=== PATIENT | male | born 1965 | race Caucasian/White ===

== ENCOUNTER → 2017-04-16 | Outpatient (CLI) | payer BC ==
[~2017-04-16] MED LIST: METOPROLOL50 MG PO; PRILOSEC20 MG PO
[2017-04-16 12:53] LABS: ALBUMIN 3.5 gm/dl (3.1-4.5); BILIRUBIN, TOTAL 0.5 mg/dl (0.2-1.0); POTASSIUM 5.4 mmol/L (3.5-5.1); TOTAL PROTEIN 7.8 gm/dL (6.4-8.2)
== END | disposition home or self-care (01) ==
LOC: LAB 12:03
PROVIDERS: Physician Assistant
DX: E78.2 Mixed hyperlipidemia (principal); E11.65 Type 2 diabetes mellitus with hyperglycemia

== ENCOUNTER → 2017-07-25 | Outpatient (CLI) | payer BC ==
[2017-07-25 11:25] LABS: ALBUMIN 3.6 gm/dl (3.1-4.5); CREATININE 1.92 mg/dL (0.70-1.30); POTASSIUM 4.3 mmol/L (3.5-5.1)
[2017-07-28 15:06] LABS: TESTOSTERONE FREE, (DIRECT) 12.2 pg/mL (7.2-24.0)
== END | disposition home or self-care (01) ==
LOC: LAB 10:23
PROVIDERS: Physician Assistant
DX: E11.65 Type 2 diabetes mellitus with hyperglycemia (principal); E78.2 Mixed hyperlipidemia; R53.83 Other fatigue

== ENCOUNTER → 2017-09-02 | Outpatient (CLI) | payer BC | END | disposition home or self-care (01) | LOC: US 11:00 | DX: I12.9 Hypertensive chronic kidney disease with stage 1 through stage 4 chronic kidney disease, or unspecified chronic kidney disease (principal); N18.3 Chronic kidney disease, stage 3 (moderate); D50.9 Iron deficiency anemia, unspecified; E55.9 Vitamin D deficiency, unspecified; E11.22 Type 2 diabetes mellitus with diabetic chronic kidney disease; E78.5 Hyperlipidemia, unspecified; Z79.4 Long term (current) use of insulin ==

== ENCOUNTER → 2017-10-29 | Outpatient (CLI) | payer BC ==
[2017-10-29 13:01] LABS: ALBUMIN 3.1 gm/dl (3.1-4.5); CREATININE 1.68 mg/dL (0.70-1.30); POTASSIUM 4.5 mmol/L (3.5-5.1); TOTAL PROTEIN 7.1 gm/dL (6.4-8.2)
== END | disposition home or self-care (01) ==
LOC: LAB 11:38
PROVIDERS: Internal Medicine Endocrinology, Diabetes & Metabolism
DX: E11.65 Type 2 diabetes mellitus with hyperglycemia (principal); E78.2 Mixed hyperlipidemia

== ENCOUNTER → 2018-03-22 | Outpatient (CLI) | payer BC ==
[2018-03-22 16:21] LABS: BASO % 0.2 % (0.0-1.0); EOS # 0.2 10*3/uL (0.0-0.4); HEMATOCRIT 39.5 % (42.0-52.0); HEMOGLOBIN 13.9 g/dl (14.0-18.0); LYMPH # 1.7 10*3/uL (1.3-4.4); LYMPH % 18.9 % (27.0-41.0); MEAN CORPUSCULAR HGB 31.7 pg (27.0-31.0); MEAN CORPUSCULAR HGB CONC 35.2 g/dl (33.0-37.0); MEAN PLATELET VOLUME 8.9 fl (9.6-12.3); MONO # 0.6 10*3/uL (0.1-1.0); MONO % 6.3 % (3.0-9.0); NEUT # 6.6 10*3/uL (2.3-7.9); NEUT % 72.3 % (47.0-73.0); PLATELET COUNT AUTOMATED 142 10*3/uL (130-400); RED BLOOD COUNT 4.39 10*6/uL (4.50-5.90); RED CELL DISTRI WIDTH 12.8 % (0-14.5); RETICULOCYTE % 2.22 % (0.50-2.50); WHITE BLOOD COUNT 9.2 10*3/uL (4.8-10.8)
[2018-03-22 16:36] LABS: ALBUMIN 3.3 gm/dl (3.1-4.5); CREATININE 2.12 mg/dL (0.70-1.30); PHOSPHOROUS 3.6 mg/dL (2.5-4.9); POTASSIUM 4.6 mmol/L (3.5-5.1); TOTAL PROTEIN 7.4 gm/dL (6.4-8.2)
[2018-03-22 16:47] LABS: FERRITIN 261.2 ng/mL (22.0-322.0); VITAMIN D, 25-HYDROXY 11.8 ng/mL (30-100)
[2018-03-22 16:48] LABS: PTH INTACT 48.2 pg/mL (14.0-72.0)
== END | disposition home or self-care (01) ==
LOC: LAB 15:59
PROVIDERS: Internal Medicine Nephrology
DX: I12.9 Hypertensive chronic kidney disease with stage 1 through stage 4 chronic kidney disease, or unspecified chronic kidney disease (principal); N18.3 Chronic kidney disease, stage 3 (moderate); D50.9 Iron deficiency anemia, unspecified; E55.9 Vitamin D deficiency, unspecified; E11.22 Type 2 diabetes mellitus with diabetic chronic kidney disease; E78.5 Hyperlipidemia, unspecified; Z79.4 Long term (current) use of insulin

== ENCOUNTER → 2018-03-26 | Outpatient (CLI) | payer BC ==
[2018-03-26 08:36] LABS: ALBUMIN 3.2 gm/dl (3.1-4.5); CREATININE 1.96 mg/dL (0.70-1.30); POTASSIUM 4.3 mmol/L (3.5-5.1); TOTAL PROTEIN 6.9 gm/dL (6.4-8.2)
== END ==
LOC: LAB 07:09
PROVIDERS: Internal Medicine Endocrinology, Diabetes & Metabolism
DX: E11.65 Type 2 diabetes mellitus with hyperglycemia (principal); E78.2 Mixed hyperlipidemia

== ENCOUNTER → 2018-10-11 | Outpatient (CLI) | payer BC ==
[2018-10-11 08:18] LABS: ALBUMIN 3.2 gm/dl (3.1-4.5); CREATININE 2.37 mg/dL (0.70-1.30); POTASSIUM 4.3 mmol/L (3.5-5.1); TOTAL PROTEIN 7.3 gm/dL (6.4-8.2)
== END | disposition home or self-care (01) ==
LOC: LAB 06:54
PROVIDERS: Physician Assistant
DX: E11.65 Type 2 diabetes mellitus with hyperglycemia (principal); E78.2 Mixed hyperlipidemia

== ENCOUNTER → 2018-12-06 | Outpatient (CLI) | payer BC ==
[2018-12-06 17:09] LABS: ALBUMIN 3.2 gm/dl (3.1-4.5); CREATININE 2.58 mg/dL (0.70-1.30); POTASSIUM 5.6 mmol/L (3.5-5.1)
== END | disposition home or self-care (01) ==
LOC: LAB 15:56
PROVIDERS: Internal Medicine Nephrology
DX: I12.9 Hypertensive chronic kidney disease with stage 1 through stage 4 chronic kidney disease, or unspecified chronic kidney disease (principal); E11.22 Type 2 diabetes mellitus with diabetic chronic kidney disease; N18.3 Chronic kidney disease, stage 3 (moderate); E78.5 Hyperlipidemia, unspecified; E55.9 Vitamin D deficiency, unspecified; D50.9 Iron deficiency anemia, unspecified; Z79.4 Long term (current) use of insulin

== ENCOUNTER → 2019-01-21 | Outpatient (CLI) | payer BC ==
[2019-01-21 11:39] LABS: ALBUMIN 3.3 gm/dl (3.1-4.5); CREATININE 2.2 mg/dL (0.70-1.30); POTASSIUM 4.8 mmol/L (3.5-5.1)
[2019-01-21 11:40] LABS: TOTAL PROTEIN 7.5 gm/dL (6.4-8.2)
[2019-01-22 07:06] LABS: LDL CHOLESTEROL (DIRECT) 91 mg/dL (0-99)
== END | disposition home or self-care (01) ==
LOC: LAB 10:42
PROVIDERS: Physician Assistant
DX: E78.2 Mixed hyperlipidemia (principal); E11.65 Type 2 diabetes mellitus with hyperglycemia

== ENCOUNTER → 2019-01-23 | Outpatient (CLI) | payer BC ==
[2019-01-23 17:22] LABS: BILIRUBIN NEGATIVE (NEGATIVE); BLOOD 1+ (NEGATIVE); CLARITY CLEAR (CLEAR); COLOR YELLOW (YELLOW); GLUCOSE 3+ (NEGATIVE); KETONE NEGATIVE (NEGATIVE); LEUKO ESTERASE NEGATIVE (NEGATIVE); NITRITE NEGATIVE (NEGATIVE); PH 5.5 (5.0-9.0); UROBILINOGEN 0.2 E.U./dl (0.2-1.0)
[2019-01-23 17:33] LABS: BACTERIA TRACE; RBC 0-2 rbc/hpf (0-2); WBC 0-2 wbc/hpf (0-5)
[2019-01-23 17:41] LABS: ALBUMIN 3.2 gm/dl (3.1-4.5); CREATININE 2.08 mg/dL (0.70-1.30); POTASSIUM 4.7 mmol/L (3.5-5.1); TOTAL PROTEIN 7.5 gm/dL (6.4-8.2)
[2019-01-23 18:12] LABS: VITAMIN D, 25-HYDROXY 24.9 ng/mL (30-100)
[2019-01-26 13:09] LABS: ALBUMIN, URINE 71.8 % (.); ALPHA-1-GLOBULIN, URINE 2.3 % (.); ALPHA-2-GLOBULIN, URINE 3.7 % (.); BETA GLOBULIN, URINE 11.2 % (.); GAMMA GLOBULIN, URINE 10.9 % (.); M-SPIKE, % Not Observed % (Not Observed); PROTEIN,TOTAL - URINE RANDOM 214.3 mg/dL (Not Estab.)
== END | disposition home or self-care (01) ==
LOC: LAB 16:41
PROVIDERS: Internal Medicine Nephrology
DX: I12.9 Hypertensive chronic kidney disease with stage 1 through stage 4 chronic kidney disease, or unspecified chronic kidney disease (principal); E11.22 Type 2 diabetes mellitus with diabetic chronic kidney disease; N18.3 Chronic kidney disease, stage 3 (moderate); D53.9 Nutritional anemia, unspecified; E78.5 Hyperlipidemia, unspecified; E55.9 Vitamin D deficiency, unspecified; D50.9 Iron deficiency anemia, unspecified; Z79.4 Long term (current) use of insulin

== ENCOUNTER → 2019-05-30 | Outpatient (CLI) | payer BC ==
[2019-05-30 08:09] LABS: ALBUMIN 2.9 gm/dl (3.1-4.5); CREATININE 2.18 mg/dL (0.70-1.30); POTASSIUM 4.9 mmol/L (3.5-5.1)
== END | disposition home or self-care (01) ==
LOC: LAB 07:06
PROVIDERS: Physician Assistant
DX: E11.65 Type 2 diabetes mellitus with hyperglycemia (principal); E78.2 Mixed hyperlipidemia

== ENCOUNTER → 2019-07-18 | Outpatient (CLI) | payer OTHER ==
[2019-07-18 17:51] LABS: POTASSIUM 4.9 mmol/L (3.5-5.1)
[2019-07-18 17:52] LABS: CREATININE 2.19 mg/dL (0.70-1.30); PHOSPHOROUS 3.2 mg/dL (2.5-4.9)
== END | disposition home or self-care (01) ==
LOC: LAB 16:48
PROVIDERS: Internal Medicine Nephrology
DX: E55.9 Vitamin D deficiency, unspecified (principal); I12.9 Hypertensive chronic kidney disease with stage 1 through stage 4 chronic kidney disease, or unspecified chronic kidney disease; E11.22 Type 2 diabetes mellitus with diabetic chronic kidney disease; N18.3 Chronic kidney disease, stage 3 (moderate); D50.9 Iron deficiency anemia, unspecified; E78.5 Hyperlipidemia, unspecified; Z79.4 Long term (current) use of insulin

== ENCOUNTER → 2019-12-24 | Outpatient (CLI) | payer OTHER ==
[2019-12-24 16:09] LABS: ALBUMIN 2.6 gm/dl (3.1-4.5); CREATININE 2.7 mg/dL (0.70-1.30); PHOSPHOROUS 3.7 mg/dL (2.5-4.9); POTASSIUM 5.4 mmol/L (3.5-5.1)
== END | disposition home or self-care (01) ==
LOC: LAB 15:22
PROVIDERS: Internal Medicine Nephrology
DX: E11.22 Type 2 diabetes mellitus with diabetic chronic kidney disease (principal); I12.9 Hypertensive chronic kidney disease with stage 1 through stage 4 chronic kidney disease, or unspecified chronic kidney disease; N18.3 Chronic kidney disease, stage 3 (moderate); D50.9 Iron deficiency anemia, unspecified; E78.5 Hyperlipidemia, unspecified; Z79.4 Long term (current) use of insulin

== ENCOUNTER → 2020-01-12 | Outpatient (CLI) | payer OTHER | END | disposition home or self-care (01) | LOC: US 16:38 | DX: N28.1 Cyst of kidney, acquired (principal); I12.9 Hypertensive chronic kidney disease with stage 1 through stage 4 chronic kidney disease, or unspecified chronic kidney disease; E11.22 Type 2 diabetes mellitus with diabetic chronic kidney disease; N18.9 Chronic kidney disease, unspecified; D50.9 Iron deficiency anemia, unspecified; E55.9 Vitamin D deficiency, unspecified; Z79.4 Long term (current) use of insulin; E78.5 Hyperlipidemia, unspecified ==

== ENCOUNTER 2020-04-28 04:42 | Inpatient (IN) | payer OTHER ==
[~2020-04-28] VITALS: Ht 170.2 cm; Wt 100.8 kg
[2020-04-28] VITALS (28 sets, daily range): BP systolic 56–143; BP diastolic 23–87
[~2020-04-28 04:42] MED LIST changes: +LOPRESSOR50 M1 PO; -METOPROLOL50 MG PO
--- NOTE | 2020-04-28 04:44 | NUR ---
Per ems pt tested postive for covid in January.Pt has had 2 negatives since then.Pt placed in negative pressue room at this time.
--- NOTE | 2020-04-28 04:45 | NUR ---
in to see pt and aware pt placed for weakness and ran out of oxygen at home.
--- NOTE | 2020-04-28 04:45 | NUR ---
Pt arrived with right chest diaylsis cath which is clamped at this time.
--- NOTE | 2020-04-28 05:15 | NUR ---
Pt states breathing is much better at time.Pt states he was unaware of running out of oxygen at home.
[2020-04-28 05:35] LABS: MEAN CELL VOLUME 94.7 fl (80.0-94.0); MEAN CORPUSCULAR HGB 30.8 pg (27.0-31.0); MEAN CORPUSCULAR HGB CONC 32.5 g/dl (33.0-37.0); MEAN PLATELET VOLUME 9.4 fl (9.6-12.3); PLATELET COUNT AUTOMATED 229 10*3/uL (130-400); RED BLOOD COUNT 2.08 10*6/uL (4.50-5.90); RED CELL DISTRI WIDTH 14.8 % (0-14.5); WHITE BLOOD COUNT 13.4 10*3/uL (4.8-10.8)
[2020-04-28 05:42] LABS: INTERNATIONAL NORM RATIO 1.2 (2.0-3.5)
[2020-04-28 05:47] LABS: ALBUMIN 2.1 gm/dl (3.1-4.5); CREATININE 5.54 mg/dL (0.70-1.30); POTASSIUM 3.9 mmol/L (3.5-5.1); TOTAL PROTEIN 7.7 gm/dL (6.4-8.2)
--- NOTE | 2020-04-28 06:01 | NUR ---
Spoke with stated they are not doing coivd precautions on him at this time.Pt will be admitted upstairs and get diaylsis.
[2020-04-28 06:08] LABS: HEMATOCRIT 19.7 % (42.0-52.0)
[2020-04-28 06:11] LABS: TOTAL CELLS COUNTED 100 #CELLS
[2020-04-28 06:12] LABS: PLATELET SUFFICIENCY NORMAL (NORMAL); POLYCHROMASIA SLIGHT; VACUOLATION OF NEUTROPHILS SLIGHT
--- NOTE | 2020-04-28 06:32 | NUR ---
stated she was going to talk to about pt with former covid.
--- NOTE | 2020-04-28 06:34 | NUR ---
spoke with and stated pt does not need to be re tested at this time and sent to a covid floor.
--- NOTE | 2020-04-28 07:18 | NUR ---
Report called to Ana garza and report given to Rachel garza.
--- NOTE | 2020-04-28 08:00 | NUR ---
A 55, admitted to ICCU, under the services of INDER De Luna DO with a diagnosis of AC RESP FAILURE, AC RENAL FAILURE, FLUID OVERLOAD. Chief complaint is SHORTNESS OF BREATH ON O2 CONCENTRATOR AT HOME. Patient arrived via stretcher from ER. Monitor applied. Initial assessment completed. Vital signs taken and recorded. INDER DE LUNA DO notified of admission to the unit. Orders received. See assessment for past medical history, medications and allergies. Patient and/or family oriented to unit. [facility] ICCU visitation policy reviewed. Clothing/patient valuable form completed. RSC-DIALYSIS CATHETER IN PLACE - DIALYSIS NURSE AWARE 0820 THAT PATIENT IS HERE AND READY FOR HER. NO EDEMA, TUBIGRIPS APPLIED. VERY SOB WITH TALKING & SLOW TO RESPOND BUT AAOX3. 0830 DR BANKS HERE.. HENRY UNDERWOOD
[2020-04-28] MEDS ORDERED: PANTOPRAZOLE SO40 MG PO (08:10)
[2020-04-28] MEDS ORDERED: BUMETANIDE2 MG PO (08:12)
[2020-04-28] MEDS ORDERED: MIDODRINE HCL5 M1 PO (08:12)
[2020-04-28] MEDS ORDERED: VASCEPA1 G1 PO ×2 (08:13→08:18)
[2020-04-28] MEDS ORDERED: VENT7GM INH (08:14)
[2020-04-28] MEDS ORDERED: HUMULIN R500 UNIT/1 SQ (08:15)
[2020-04-28] MEDS ORDERED: MIDODRINE HCL10 MG PO (08:17)
[2020-04-28 08:49] LABS: ABG BASE EXCESS -2.7 mmol/L (-2.0-2.0); ARTERIAL BLOOD GAS PH 7.461 (7.35-7.45)
--- NOTE | 2020-04-28 09:30 | NUR ---
DR GASTELUM CALLED WITH ABG RESULTS - NO FURTHER ORDERS
--- NOTE | 2020-04-28 11:47 | NUR ---
SPOKE WITH DR POZO ABOUT TROPONIN LEVELS CLIMBING, NO C/O CHEST PAIN BUT DYSPNIC, EKG CHANGES.. ORDERS RECEIVED. HOLD ANITCOAGULATION FOR NOW - DIALYSIS & BLOOD IS WHAT HE NEEDS AT THIS TIME HE IS UNABLE TO HAVE ANY CARDIAC INTERVENTION D/T H&H.. UPDATED
--- NOTE | 2020-04-28 11:49 | NUR ---
DR BANKS UPDATED
--- NOTE | 2020-04-28 12:00 | NUR ---
METOPROLOL, ASPIRIN, & NITROPASTE GIVEN PER ORDERS
--- NOTE | 2020-04-28 12:56 | NUR ---
NITROPASTE REMOVED PRIOR TO DFIALYSIS STARTING.. PATIENT GAVE VERBAL CONSENT FOR DIALYSIS TO DIALYSIS NURSE & MYSELF
--- NOTE | 2020-04-28 13:45 | NUR ---
PATIENT INCONT OF LIQUID BROWN STOOL - SENT FOR FOBI
--- NOTE | 2020-04-28 14:00 | NUR ---
PT PLACED ON 40% VENTURI MASK FOR LOW SATS & PULSE OX IN THE 80'S.. UPPER O2 TO 50% FOR CONTINUED PULSE OX 80'S AND RESP RATE 40'S MOUTH BREATHING
--- NOTE | 2020-04-28 14:27 | NUR ---
PLACED ON NC5L PATIENT IS PULLING AT FACE MASK & VERY RESTLESS..DIALYSIS IN PROGRESS..PATIENT IS NOT FULLY UINDERSTANDING WHAT IS BEING TOLD TO HIM ATY ALL TIMES BUT WTHEN WILL BE FULLY APPROPRIATE COLOR IS PALE, DUSKY WITH TURNING. BLOOD BANK IS AWAITING RESULTS OF FURTHER TESTING D/T ANTIBIODIES
--- NOTE | 2020-04-28 16:04 | NUR ---
DR WEAVER SPOKE WITH THE PATIENT'S THE PATIENT IS MORE DISORIENTED. PT TO BE TRANSFERRED OUT - [facility] ACCEPTING DR MUSA IN MEDICAL ICU.. DR COTO HERE AND AWARE OF CONDITION & TRANSFER..DR GASTELUM AWARE
--- NOTE | 2020-04-28 17:08 | NUR ---
AWAITING HELICOPTER ARRIVAL...LEVOPHED AT 12mcg/min nss @ 200cc/hr WITH ANTIBIOTIC AT 300cc/hr
--- NOTE | 2020-04-28 17:20 | NUR ---
PATIENT BECAME MOTTLED FROM KNEES DOWN, UNRESPONSIVE, DIAPHORETIC, HYPOTENSIVE, CODE BLUE CALLED - EMERGENCY intubation BY DR GARDNER, DR BANKS HERE AND UPDATED . DR POZO HERE AND GIVING ORDERS. Patient intubated with Other endotracheal tube orally X 1 attempts. Patient sedated with ETIMIDATE & SUCC Respiratory therapy at bedside. Crash cart with emergency drugs available. Endotracheal tube inflated with 10cc's. Lungs auscultated for equality of breath sounds. Tube secured with Tube tamer at 23cm's. at level of LIP. Patient tolerated procedure UNRESPONSIVE. Portable chest X-ray obtained and reviewed for tube placement. Patient connected to ventilator CMV mode RATE 12, 500 tidal volume, 100 FIO2, 5 PEEP, and 0 pressure support. 1726 #16 MOSS PLACED WITHOUT DIFFICULTY..10cc ASHANTI URINE OBTAINED HENRY UNDERWOOD
--- NOTE | 2020-04-28 17:55 | NUR ---
PATIENT LEFT VIA [facility] ICU RM [id number].. REPORT CALLED TO MARGOT.
== END 2020-04-28 17:55 | disposition short-term general hospital (02) | DRG 871 ==
LOC: ED 04:42 → EDHOLD 06:16 → ICCU 07:08
PROVIDERS: Emergency Medicine; Internal Medicine Critical Care Medicine; ADMIT Internal Medicine
PROC: 0BH17EZ Insertion of Endotracheal Airway into Trachea, Via Natural or Artificial Opening (ICD-10-PCS; principal; 2020-04-28)
PROC: 5A1D70Z Performance of Urinary Filtration, Intermittent, Less than 6 Hours Per Day (ICD-10-PCS; principal; 2020-04-28)
DX: A41.9 Sepsis, unspecified organism (principal); N18.6 End stage renal disease; J96.01 Acute respiratory failure with hypoxia; J18.9 Pneumonia, unspecified organism; E43 Unspecified severe protein-calorie malnutrition; I21.A1 Myocardial infarction type 2; G93.41 Metabolic encephalopathy; N17.0 Acute kidney failure with tubular necrosis; E87.1 Hypo-osmolality and hyponatremia; E87.2 Acidosis; R65.20 Severe sepsis without septic shock; K21.9 Gastro-esophageal reflux disease without esophagitis; E87.79 Other fluid overload; E66.9 Obesity, unspecified; D64.9 Anemia, unspecified; I95.9 Hypotension, unspecified; E11.22 Type 2 diabetes mellitus with diabetic chronic kidney disease; D72.9 Disorder of white blood cells, unspecified; E87.8 Other disorders of electrolyte and fluid balance, not elsewhere classified; E11.65 Type 2 diabetes mellitus with hyperglycemia; Z68.34 Body mass index [BMI] 34.0-34.9, adult; Z95.2 Presence of prosthetic heart valve; Z87.891 Personal history of nicotine dependence; Z82.49 Family history of ischemic heart disease and other diseases of the circulatory system; Z83.3 Family history of diabetes mellitus; Z82.3 Family history of stroke; Z79.899 Other long term (current) drug therapy; Z79.4 Long term (current) use of insulin; Z99.2 Dependence on renal dialysis; Z86.19 Personal history of other infectious and parasitic diseases; Z99.81 Dependence on supplemental oxygen